=== PATIENT | male | born 1995 | race Caucasian/White ===

== ENCOUNTER 2017-07-01 12:36 | Emergency (ER) | END 2017-07-01 18:44 | disposition home or self-care (01) ==

== ENCOUNTER 2018-07-10 02:24 | Emergency (ER) | payer MEDICAID, OTHER ==
[~2018-07-10] VITALS: Wt 89.3 kg
[2018-07-10] MEDS ORDERED: ONDANSETRON (ODT) 4 MG TAB ODT STA (04:59)
--- NOTE | 2018-07-10 04:59 | ERD ---
ER Documentation Chief Complaint Chief Complaint RUQ pain x 1 day HPI This is a 22-year-old male presents to emerge department with complaints of right upper abdominal pain that is ongoing for about couple of weeks. Denies headache, head injury, loss of consciousness, dizziness, neck pain, neck stiffness, throat pain, difficulty swallowing, difficulty breathing lying flat, shoulder pain, chest pain, back pain, nausea, vomiting, constipation, diarrhea, urinary symptoms, loss of bowel and bladder control, trauma, injury, falls, difficulty walking due to pain, numbness or tingling sensation, calf pain, recent travel, recent major surgery in the last 3 weeks, calf pain, recent long travel, recent exposure to any illness, recent antibiotic use in the last 3 months, fever, chills, seizures. Past medical history: Surgical history: Social: Denies smoking, use of alcoholic beverages, use of illegal drugs. ROS All systems reviewed and are negative except as per history of present illness. Medications Home Meds Active Scripts Simethicone (Simethicone) 180 Mg Capsule, 180 MG PO Q8 PRN for DISTENSION/GAS/BLOATING, #20 CAP Prov:PASILABAN,RANDYAR F 07/10/18 Acetaminophen* (Tylophen*) 500 Mg Capsule, 1 CAP PO Q6H PRN for PAIN AND OR ELEVATED TEMP, #20 CAP Prov:PASILABAN,KLAR F 07/10/18 Famotidine* (Pepcid*) 20 Mg Tablet, 40 MG PO DAILY for 30 Days, #30 TAB Prov:PASILABAN,KLAR F 07/10/18 Ondansetron Hcl* (Zofran*) 4 Mg Tablet, 4 MG PO Q8H PRN for NAUSEA AND/OR VOMITI NG, #30 TAB Prov:PASILABAN,KLAR F 07/10/18 Allergies Allergies: Coded Allergies: No Known Allergy (Unverified , 07/01/17) PMhx/Soc Medical and Surgical Hx: pt denies Medical Hx, pt denies Surgical Hx History of Surgery: Yes (TONSILLECTOMY) Anesthesia Reaction: No Hx Alcohol Use: Yes Hx Substance Use: Yes (marijuana) Hx Tobacco Use: Yes Smoking Status: Current every day smoker Physical Exam Vitals Vital Signs Date Temp Pulse Resp B/P (MAP) Pulse Ox O2 O2 Flow FiO2 Time Delivery Rate 07/10/18 98.2 77 17 112/82 99 Room Air 05:32 (92) 07/10/18 96.8 85 16 148/85 99 03:20 (106) Physical Exam Const: No acute distress Head: Atraumatic Eyes: Normal Conjunctiva ENT: Normal External Ears, Nose and Mouth. Neck: Full range of motion. No meningismus. Resp: Clear to auscultation bilaterally Cardio: Regular rate and rhythm, no murmurs Abd: Soft, non tender, non distended. Normal bowel sounds. Negative Russo sign. Negative Wapello sign (heel jar test). Negative psoas sign. Negative Rovsing sign. No CVA tenderness. Able to jump 10 times without developing lower abdominal pain. Skin: No petechiae or rashes. No vesicular lesions. Color appears normal for ethnicity. No signs of severe dehydration. Back: No midline or flank tenderness Ext: No cyanosis, or edema Neur: Awake and alert. No neurological deficits. Psych: Normal Mood and Affect Results 24 hrs Current Medications Medications Dose Sig/Chary Start Time Status Last (Trade) Ordered Route PRN Stop Time Admin Dose Reason Admin Ondansetron 4 mg ONCE STAT 07/10/18 DC 07/10/18 HCl (Zofran ODT 04:59 05:21 Odt) 07/10/18 05:01 40 ml ONCE ONCE 07/10/18 DC 07/10/18 Miscellaneous PO 05:00 05:21 Medication 07/10/18 05:01 (Gi Cocktail (2)) Famotidine 40 mg ONCE ONCE 07/10/18 DC 07/10/18 (Pepcid) PO 05:00 05:21 07/10/18 05:01 Procedures/MDM Diagnostic tests: Clinical exam. I offered diagnostic tests including blood works and imaging but patient strongly refused stated that he prefers to be medicated and go home because he does not want to wait. Treatment: GI cocktail. Pepcid. Zofran. Re-evaluation: Denies pain. Negative Russo sign. Negative Wapello sign (heel jar test). Negative psoas sign. Negative Rovsing sign. No CVA tenderness. Able to jump 10 times without developing lower abdominal pain. Differential diagnosis I have low suspicion for pneumonia, pancreatitis, cholecystitis, diverticulitis, diverticulitis with abscess, appendicitis, mesenteric ischemia, AAA, nephrolithiasis, pyelonephritis, obstructing kidney stone, septic stone, hernia, shingles, sepsis, severe dehydration. Final diagnosis: Abdominal pain. Prescription: Tylenol. Pepcid. Zofran. Follow-up with PCP in the next 24-48 hours. Come back here in the emergency department for any new symptoms or any worsening symptoms. All questions and concerns were answered. Patient and family members verbalized understanding and agreed with plan of care. Hemodynamically stable on discharge. Departure Diagnosis: Primary Impression: Abdominal pain Condition: Stable Additional Instructions: Follow-up with PCP in the next 24-48 hours. Come back here in the emergency department for any new symptoms or any worsening symptoms. ROGERIO MCKINNON Jul 10, 2018 04:59
[2018-07-10] MEDS ORDERED: FAMOTIDINE 20 MG TAB PO ONE (05:00)
[2018-07-10] MEDS ORDERED: LIDOCAINE/MYLANTA 40 ML BTL PO ONE (05:00)
[2018-07-10] MEDS ORDERED: ONDA4TAB8 PO (05:00)
[2018-07-10] MEDS ORDERED: FAMO-96 PO (05:01)
[2018-07-10] MEDS ORDERED: ACET500C5 PO (05:01)
[2018-07-10] MEDS ORDERED: SIME180C39 PO (05:02)
[2018-07-10 05:32] VITALS: BP 112/82; PULSE 77; RESP 17
== END 2018-07-10 05:32 | disposition home or self-care (01) ==
LOC: FTE 02:24
DX: R10.11 Right upper quadrant pain (principal); F17.210 Nicotine dependence, cigarettes, uncomplicated
CPT/HCPCS: Z7502; Z7610; 99283